=== PATIENT | male | born 1970 | race Caucasian/White ===

== ENCOUNTER 2019-04-28 08:24 | Outpatient (CLI) | payer OTHER ==
--- NOTE | 2019-04-28 08:56 | CT ---
CT OF ABD AND PELVIS: DATE 04/28/2019. COMPARISON: None. HISTORY: Nephrolithiasis, hematuria, inability to empty bladder. TECHNIQUE: Axial CT imaging at 5 mm intervals from lung bases through pubic symphysis without contrast. Coronal reformatted imaging obtained. FINDINGS: Lack of contrast media limits assessment of the viscera, bowel, vascular structures, and for lymphade nopathy. The imaged lung bases are unremarkable. No free intraperitoneal air or fluid is noted. The liver, gallbladder, and spleen appear grossly unremarkable. The pancreas and the adrenal glands a re grossly unremarkable as well. No evidence for obstructive uropathy on the left. There is a nonobstructing stone within the upper po le of the left kidney measuring approximately 4-5 mm. An additional punctate stone is noted in the upper pole of the left kidney. There is no significant hydronephrosis or hydroureter on the right. No intrarenal calculus is seen on the right. Despite the lack of evidence of obstructive uropathy, there does appear to be a stone within the distal right ureter, best seen on axial image 70 and coronal image 99 measuring approximat kira 8 mm in craniocaudal dimension. Limited assessment of the bowel demonstrates no evidence for inflammatory change or obstruction. Review of the osseous structures demonstrates no worrisome lytic or blastic bone lesions. IMPRESSION: 1. 8 mm stone within the distal right ureter. 2. Intrarenal calculi on the left. Transcribed Date/Time: 04/28/2019 9:17 AM
== END 2019-04-28 08:25 | disposition home or self-care (01) ==
LOC: SCSCT 08:24
PROVIDERS: ATTEND Family Medicine
DX: N20.2 Calculus of kidney with calculus of ureter (principal)
CPT/HCPCS: 74176

== ENCOUNTER 2019-08-28 09:01 | Inpatient (IN) | payer OTHER ==
[2019-08-28] MEDS ORDERED: Morphine 4 MG/ML VIAL ONE ×2 (09:50→11:02)
[2019-08-28 10:07] LABS: #Basophils 0.2 thou/uL (0.0-0.2); #Eosinphils 0.1 thou/uL (0.0-0.7); #Lymphocytes 0.6 thou/uL (1.20-3.40); #Monocytes 0.8 thou/uL (0.11-0.59); #Neutrophils 8.8 thou/uL (1.40-6.50); %Eosinophils 0.7 % (0.0-10.0); %Monocytes 7.3 % (0.0-10.0); Mean Corpuscular HGB CONC 35.5 g/dL (32.0-36.0); Mean Corpuscular Hemoglobin 31.2 pg (27.0-31.0); Platelet Count 220 thou/uL (130-400); RBC Distribution Width 10.7 % (11.5-14.5); Red Blood Cell (RBC) Count 4.47 mill/uL (4.70-6.10); White Blood Cell (WBC) Count 10.4 thou/uL (4.8-10.8)
[2019-08-28 10:09] LABS: ALT (SGPT) 28 U/L (8-55); AST (SGOT) 17 U/L (5-34); Albumin 3.8 g/dL (3.5-5.0); Alkaline Phosphatase 76 U/L (40-110); Anion Gap 17 mmol/L (10-20); BUN (Urea Nitrogen) 12 mg/dL (8.9-20.6); Calc. Creatinine Clearance 0 mL/min (70-130); Calcium 9.4 mg/dL (7.8-10.44); Carbon Dioxide 24 mmol/L (22-29); Chloride 104 mmol/L (98-107); Estimated GFR-MDRD 69; Globulin 3.3 g/dL (2.4-3.5); Glucose 129 mg/dL (70-105); Lipase 17 U/L (8-78); Potassium 3.8 mmol/L (3.5-5.1); Protein, Total 7.1 g/dL (6.0-8.3); Sodium 141 mmol/L (136-145)
[2019-08-28] MEDS ORDERED: Ketorolac Tromethamine 30 MG/ML VIAL ONE (11:16)
[2019-08-28] MEDS ORDERED: metroNIDAZOLE 500 MG/100 ML BAG ONE (11:16)
--- NOTE | 2019-08-28 11:59 | CT ---
CT ABDOMEN AND PELVIS WITHOUT IV CONTRAST: Oral contrast was not given. INDICATION: Abdominal pain. Comparison made to CT abdomen and pelvis dated 04/28/19. That exam revealed an obstructing calculus i n the distal right ureter. There is a nonobstructing 5 mm calculus in the upper collecting structures of the left kidney. FINDINGS: Lung bases clear. The liver, spleen, and pancreas are unremarkable. Stomach and duodenum unremarkable. Adrenal glands n ormal. Review of the urinary tract today reveals minimal fullness of the left collecting structures. There i s now a 5 mm calculus in the distal left ureter which would correspond to the calculus seen in the up per collecting structures on the left on the previous study. This calculus is producing only mild hyd ronephrosis on the left. Small bowel loops are normal caliber. There is an inflammatory process seen in the lower abdomen midline which appears to involve the upper sigmoid colon and a loop of adjacent small bowel. There is mural thickening involving this portion o f the sigmoid colon and the adjacent small bowel. There are numerous foci of extraluminal gas at this location. Extraluminal gas is also seen in the upper abdomen with gas pockets seen along the liver, stomach, and under both hemidiaphragms. No significant free fluid identified. IMPRESSION: 1. Diffuse inflammatory process with mesenteric haziness and stranding in the lower abdomen midline involving a loop of upper sigmoid colon and adjacent loop of small bowel. There is an associated brian l perforation with moderate extraluminal gas at this location and tiny gas pockets scattered througho ut the abdomen and under both hemidiaphragms as described above. No significant free fluid. There is no focal abscess collection. Etiology is undetermined, but could represent diverticulitis from the si gmoid colon; however, I cannot exclude primary etiology from the small bowel. 2. There is a 5 mm obstructing calculus in the distal left ureter producing only mild left hydroneph rosis. Findings relayed to Dr. Braga at time of dictation. CODE CR. POS: [facility]
[2019-08-28] MEDS ORDERED: Fentanyl 100 MCG/2 ML VIAL ONE (12:38)
[2019-08-28] MEDS ORDERED: Sodium Chloride 0.9% 100 ML ONE (12:41)
[2019-08-28] MEDS ORDERED: Piperacillin/Tazobactam 3.375 GM VIAL ONE (12:41)
[2019-08-28] MEDS ORDERED: Morphine 2 MG/ML SYRINGE SLOW IVP PRN (12:52)
[2019-08-28] MEDS ORDERED: hydrALAZINE 20 MG/ML VIAL SLOW IVP PRN (12:52)
[2019-08-28] MEDS ORDERED: Acetaminophen 1,000 MG in Premix Bag 1 BAG IVPB SCH (13:00)
[2019-08-28] MEDS ORDERED: Ketorolac Tromethamine 30 MG/ML VIAL IVP SCH (13:00)
--- NOTE | 2019-08-28 13:44 | HP ---
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 Today is ; on Sunday, he experienced some diarrhea, bloating, belching, night sweats without fever. On Sunday and Sunday, he continued to work and felt some bloating, but today he had exquisite pain, presented to the [facility] Emergency Room. There, he was noted to have a white count of 10 and hemoglobin of 14. Abdominal tenderness localized to his lower abdomen, had a CAT scan of the abdomen and pelvis performed, revealing an inflammatory process, lower abdomen, midline involving the upper sigmoid colon, loop adjacent small bowel. There is mural thickening involving portion of the sigmoid colon adjacent small bowel. There are numerous foci of extraluminal gas at this location. There are some small pockets of extraluminal gas along the upper abdomen and both hemidiaphragms were very small. On exam, the patient has tenderness in his lower abdomen, not his upper abdomen. The patient has a 5-mm obstructing calculus in distal left ureter, producing a mild left hydronephrosis. ALLERGIES: NONE. SOCIAL HISTORY: Tobacco, none. He does dip alcohol occasionally, although not in the past 5 days. The patient has a fiancee. He is single. PAST SURGICAL HISTORY: Colonoscopy at 28 and tubular adenoma resected. PAST MEDICAL HISTORY: Noncontributory. PHYSICAL EXAMINATION: GENERAL: He is in no distress. VITAL SIGNS: Blood pressure 120/64, pulse 90, respirations 18, and temperature 100.4 degrees. HEENT: Unremarkable. LUNGS: Clear to auscultation. CARDIAC: Regular rate and rhythm without murmur or gallop. ABDOMEN: Slightly distended. Tenderness in his lower, midline, suprapubic, and infraumbilical area with guarding. Otherwise, his upper abdomen is soft and nontender. EXTREMITIES: Unremarkable. ASSESSMENT AND PLAN: 1. Diverticulitis. He seems to be fairly well localized despite the small pockets of extraluminal gas seen in the upper abdomen. He is not tender there. We will treat this nonoperatively with intravenous antibiotics and bowel rest and follow him clinically. I have explained treatment of diverticulitis to him and told him that he may need an operation in next 1 to 2 days if he does not improve. He understands these issues and is agreeable to nonoperative treatment regimen effort. He understands he may need a repeat CAT scan, future drainage of an abscess, or other procedures indicated depending on his clinical course. 2. Left ureterolithiasis. We will consult Urology. His renal function is normal. Job ID: [id number]
--- NOTE | 2019-08-28 16:41 | PRG ---
DATE OF SERVICE: 08/28/2019 SUBJECTIVE: Jose Hernandez is doing well this afternoon. I checked him and his exam is not changed. OBJECTIVE: VITAL SIGNS: Temperature 99.2 degrees, pulse 68, and blood pressure 113/69. LUNGS: Clear to auscultation. ABDOMEN: Soft. Bowel sounds present. Tenderness in his lower abdomen. Soft in his upper abdomen. He is obese, protuberant. ASSESSMENT AND PLAN: Diverticulitis with small amount of free air. Continue these antibiotics and attempts at nonoperative management. Job ID: [id number]
[2019-08-28] MEDS: D5 1/2 NS w/20 mEq KCL 1,000 ML IV SCH ×2 (17:14→21:07)
[2019-08-28] MEDS: Piperacillin/Tazobactam 4.5 GM in Sodium Chloride 0.9% 100 ML IVPB SCH (17:17)
[2019-08-28 18:38] VITALS: BMI 32.5
[2019-08-28] MEDS: Morphine 4 MG/ML VIAL SLOW IVP PRN (19:03)
[2019-08-28] MEDS: Acetaminophen 1,000 MG in Premix Bag 1 BAG IVPB PRN (19:12)
[2019-08-28] MEDS: Enoxaparin Sodium 40 MG/0.4 ML SYRINGE SC SCH (21:08)
[2019-08-29] MEDS: Piperacillin/Tazobactam 4.5 GM in Sodium Chloride 0.9% 100 ML IVPB SCH ×5 (00:04→23:45)
[2019-08-29] MEDS: Morphine 4 MG/ML VIAL SLOW IVP PRN ×2 (00:11→08:08)
[2019-08-29 00:33] LABS: Bilirubin Negative (Negative); Blood, Urine Negative (Negative); Clarity Clear (Clear); Glucose, Urine (Dipstick) Normal (Negative); Leukocyte Negative Leu/uL (Negative); Nitrite Negative (Negative); Protein, Urine (Dipstick) 50 mg/dL (Neg-Trace); Urobilinogen 6 mg/dL (Less than 2)
[2019-08-29 00:35] LABS: Urine Culture Reflex No No
[2019-08-29] MEDS: Acetaminophen 1,000 MG in Premix Bag 1 BAG IVPB PRN (02:22)
[2019-08-29 05:46] LABS: #Eosinphils 0.2 thou/uL (0.0-0.7); #Lymphocytes 0.9 thou/uL (1.20-3.40); #Monocytes 0.8 thou/uL (0.11-0.59); #Neutrophils 7.6 thou/uL (1.40-6.50); %Basophils 0.1 % (0.0-1.0); %Eosinophils 1.8 % (0.0-10.0); %Lymphocytes 9.2 % (21.0-51.0); %Neutrophils 80.9 % (42.0-75.0); Hemoglobin 12.2 g/dL (14.0-18.0); Mean Corpuscular HGB CONC 35.2 g/dL (32.0-36.0); Mean Corpuscular Hemoglobin 32.1 pg (27.0-31.0); Mean Corpuscular Volume 91.4 fL (78.0-98.0); Mean Platelet Volume 7.1 fL (7.4-10.4); Platelet Count 235 thou/uL (130-400); RBC Distribution Width 11.1 % (11.5-14.5); Red Blood Cell (RBC) Count 3.81 mill/uL (4.70-6.10); White Blood Cell (WBC) Count 9.4 thou/uL (4.8-10.8)
[2019-08-29 05:56] LABS: ALT (SGPT) 27 U/L (8-55); AST (SGOT) 14 U/L (5-34); Albumin 3.3 g/dL (3.5-5.0); Alkaline Phosphatase 74 U/L (40-110); Anion Gap 11 mmol/L (10-20); BUN (Urea Nitrogen) 12 mg/dL (8.9-20.6); Calc. Creatinine Clearance 139 mL/min (70-130); Calcium 8.6 mg/dL (7.8-10.44); Carbon Dioxide 23 mmol/L (22-29); Chloride 105 mmol/L (98-107); Estimated GFR-MDRD 88; Glucose 148 mg/dL (70-105); Potassium 3.5 mmol/L (3.5-5.1); Protein, Total 6.3 g/dL (6.0-8.3); Sodium 135 mmol/L (136-145)
[2019-08-29] MEDS: D5 1/2 NS w/20 mEq KCL 1,000 ML IV SCH ×3 (06:11→23:45)
[2019-08-29] MEDS ORDERED: FLU VACC QS2019-20(6MOS UP)/PF 60 MCG/0.5 ML SYRINGE IM ONE (09:00)
[2019-08-29] MEDS: Pantoprazole 40 MG VIAL IVP SCH (10:13)
--- NOTE | 2019-08-29 13:21 | PRG ---
DATE OF SERVICE: 08/29/2019 SUBJECTIVE: Mr. Hernandez is doing better today. He is having less pain. He, however, did have a low-grade fevers to 100.6 and by the time of this dictation, 101.1. OBJECTIVE: LUNGS: Clear to auscultation. CARDIAC: Regular rate and rhythm without murmur or gallop. ABDOMEN: Soft, less tender. He has focal tenderness in suprapubic and left lower quadrant with guarding. Upper abdomen is soft and nontender. He does have bowel sounds. LABORATORY DATA: This morning, his white count is 9.4 and hemoglobin 12. Basic metabolic profile is normal. Urinalysis negative for blood. ASSESSMENT AND PLAN: 1. Diverticulitis, severe. He did have punctate areas of free air through his abdominal cavity and subdiaphragmatic, but these were very small and he is not tender. He is hemodynamically stable. We recommend continue treating him with bowel rest, sips and chips only at this time and high-dose antibiotics, 4.5 g Zosyn IV q.6 hours. If he improves, he could perhaps be started on clear liquids. He did have a bowel movement today. He is feeling much better. 2. Urolithiasis, left ureteral stone. Dr. Mauricio has seen him and planning cystoscopy, retrogrades today to eliminate this as a source of his fever and pain. Most likely, this pain is a combination of the two, but probably mostly from his diverticulitis and it would not be unusual for him to have low-grade fevers. Dr. Fisher is covering the weekend. Job ID: [id number]
[2019-08-29] MEDS ORDERED: Fentanyl 100 MCG/2 ML VIAL ONE (13:32)
[2019-08-29] MEDS ORDERED: Midazolam HCl 2 mg/2 ml Vial ONE (13:32)
[2019-08-29] MEDS ORDERED: Iothalamate Meglumine 60% 50 ML VIAL FS ONE (13:59)
[2019-08-29] MEDS ORDERED: Promethazine HCl 25 MG/ML VIAL IM PRN (15:00)
[2019-08-29] MEDS ORDERED: Promethazine HCl 25 MG/ML VIAL SLOW IVP PRN (15:00)
[2019-08-29] MEDS ORDERED: Ondansetron HCl/PF 4 MG/2 ML Vial IVP PRN (15:00)
[2019-08-29] MEDS ORDERED: D5 1/2 NS w/20 mEq KCL 1,000 ML ONE (15:23)
--- NOTE | 2019-08-29 15:25 | CON ---
DATE OF CONSULTATION: 08/29/2019 REASON FOR CONSULTATION: Kidney stone. CHIEF COMPLAINT: Abdominal pain. HISTORY OF PRESENT ILLNESS: This is a 49-year-old male with a history throughout this week, beginning on Sunday of abdominal pain, bloating, night sweats, and diarrhea. He had worsening pain and bloating and presented to the emergency room on . His white count was [address] diagnosed him with diverticulitis with extraluminal gas as well as a distal left ureteral stone with mild hydronephrosis. Overnight, he tells me that he feels mildly improved as far as the discomfort, although he continues to report abdominal pain, nausea, dysuria, and suprapubic pain. He feels that he has a weak urinary stream. He is having subjective fevers this afternoon, and his temperature has risen to over 102 here recently. He does have a history of recurrent kidney stones and told that he has passed 4 or 5 this year. He has never required surgery for kidney stone removal. ALLERGIES: NONE. PAST MEDICAL HISTORY: Recurrent kidney stones. PAST SURGICAL HISTORY: Colonoscopy with tubular adenoma resection. SOCIAL HISTORY: Nonsmoker. He does dip tobacco. Occasional alcohol use. Engaged. Employed. HOME MEDICATIONS: Reviewed. No urologic medications. FAMILY HISTORY: Reviewed, noncontributory. PHYSICAL EXAMINATION: VITAL SIGNS: T-max over 102, otherwise vitals are stable. GENERAL: No acute distress. Conversant. HEENT: Extraocular movements are intact. Sclarea are nonicteric. Head, normocephalic and atraumatic. LUNGS: Unlabored and breathing, symmetric chest expansion. HEART: Regular rate and rhythm. ABDOMEN: Distended. Mild tenderness throughout. Much more tender over the left lower quadrant. No flank tenderness. : Normal phallus. Testicles present in the scrotum. Moderate suprapubic tenderness. EXTREMITIES: Without clubbing, cyanosis, or edema. NEUROLOGIC: Alert and oriented x3. PSYCHIATRIC: Normal mood and affect. LABORATORY DATA: White count this morning is 9.4, down from 10.4 yesterday. Creatinine is stable at 0.92 today. Urinalysis this morning shows small amount of protein with negative nitrites or leukocytes. CT scan was personally reviewed by me, both the images and the Radiology report; as far as the kidney stone, he does have what appears to be a 5 to 6 mm stone in the distal left ureter with proximal hydroureter. I do not appreciate any perinephric stranding. There are no other intrarenal stones. ASSESSMENT AND PLAN: Obstructing distal left ureteral stone with fevers. The patient and I discussed this issue at length, and I also coordinated care with Dr. Munoz, his attending physician. We decided that we would proceed to the operating room today for ureteral stent placement to help clarify his clinical picture. He does understand that this will require a second procedure to remove the stone in the future. We discussed the procedure in detail including the expected postoperative course and the risks including bleeding, infection, pain, inability to bypass the stone and place the stent requiring possible percutaneous nephrostomy tube, ureteral injury. The patient understands these risks and wishes to proceed with the procedure. Job ID: [id number]
--- NOTE | 2019-08-29 16:39 | RAD ---
Retrograde pyelogram one view: DATE: 08/29/2019 HISTORY: 49-year-old male with obstructive left distal ureteral calculus. FINDINGS: Single image demonstrates a left ureteral stent. There is a small amount of contrast material within a decompressed urinary bladder and within a portion of the left renal collecting system. There is also small amount of contrast along the distal portion of left ureter. No high-grade hydronephrosis o f the partially visualized left renal collecting system. IMPRESSION: Left ureteral stent.
--- NOTE | 2019-08-29 20:38 | OP ---
DATE OF PROCEDURE: 08/29/2019 PREOPERATIVE DIAGNOSIS: Obstructing left ureteral stone. POSTOPERATIVE DIAGNOSIS: Obstructing left ureteral stone. PROCEDURES PERFORMED: Cystoscopy with left retrograde pyelogram, left 4.8 x 6 double-J ureteral stent. ANESTHESIA: General. COMPLICATIONS: None. SPECIMEN: Urine for culture. BLOOD LOSS: 5 mL. DESCRIPTION OF PROCEDURE: After informed consent, the patient was taken to the operating room, transferred to the table on his own power. Anesthesia was established. Timeout was performed showing the correct patient, site, and procedure. We make sure that he had received antibiotics on the floor as scheduled - Zosyn at 1 p.m. He was prepped and draped in the lithotomy position. The rigid cystoscope was advanced through the urethra into the bladder, revealed normal course and caliber of the urethra and a nonobstructing prostate. The bladder was systematically examined, noting no mucosal abnormalities. The left ureteral orifice was cannulated with a Pollack catheter, and a retrograde pyelogram was generally performed showing filling defect in the distal left ureter with hydroureter beyond; however, the proximal ureter and renal pelvis were not dilated. I then passed a wire under fluoroscopic guidance up into the upper pole of the kidney by passing the stone. The Pollack catheter was then removed and a 4.8 x 6 double-J ureteral stent placed with a curl in the upper pole and a curl in the bladder under fluoroscopic imaging and direct visualization respectively. There was a small amount of purulent debris, which was sent for urine culture. The bladder was then drained, and the scope was withdrawn. The patient was brought down from lithotomy position, awoken from anesthesia, transferred back to his hospital bed and taken to PACU in stable condition. Job ID: [id number]
[2019-08-29] MEDS: Enoxaparin Sodium 40 MG/0.4 ML SYRINGE SC SCH (20:51)
[2019-08-30] MEDS: Piperacillin/Tazobactam 4.5 GM in Sodium Chloride 0.9% 100 ML IVPB SCH ×4 (05:12→23:55)
[2019-08-30] MEDS: D5 1/2 NS w/20 mEq KCL 1,000 ML IV SCH ×3 (05:42→21:50)
[2019-08-30] MEDS: Pantoprazole 40 MG VIAL IVP SCH (09:25)
[2019-08-30] MEDS ORDERED: Acetaminophen 1,000 MG in Premix Bag 1 BAG IVPB PRN (09:44)
--- NOTE | 2019-08-30 09:55 | PRG ---
DATE OF SERVICE: 08/30/2019 SUBJECTIVE: Mr. Hernandez feels better. His pain on the left flank is much improved since stent placement. No fevers. He notes mild bloating, but no nausea or vomiting. OBJECTIVE: VITAL SIGNS: He is afebrile and his vital signs are stable. ABDOMEN: Soft. He has some minimal lower abdominal guarding without peritoneal signs. LABORATORY DATA: His white blood cell count is normal. ASSESSMENT: 1. Complicated diverticulitis. 2. Left ureteral stone, status post stent. PLAN: He certainly has a complex diverticulitis. I am not sure he is going to get through this hospitalization without surgery. However, his pain is actually improved. His belly is fairly soft and his white blood cell count is normal, so we will allow clear liquid diet today. Recheck his labs in the morning. Continue Stephany. Job ID: [id number]
[2019-08-30] MEDS: Ketorolac Tromethamine 30 MG/ML VIAL IVP PRN (11:29)
[2019-08-30] MEDS: Enoxaparin Sodium 40 MG/0.4 ML SYRINGE SC SCH (20:35)
[2019-08-30] MEDS ORDERED: Zolpidem Tartrate 5 MG TAB PO PRN (20:46)
[2019-08-31] MEDS: Piperacillin/Tazobactam 4.5 GM in Sodium Chloride 0.9% 100 ML IVPB SCH ×4 (05:21→23:01)
[2019-08-31] MEDS: D5 1/2 NS w/20 mEq KCL 1,000 ML IV SCH ×2 (05:25→20:43)
[2019-08-31 06:51] LABS: #Eosinphils 0.2 thou/uL (0.0-0.7); #Lymphocytes 1.9 thou/uL (1.20-3.40); #Neutrophils 8.8 thou/uL (1.40-6.50); %Basophils 0.1 % (0.0-1.0); %Eosinophils 1.3 % (0.0-10.0); %Lymphocytes 16.1 % (21.0-51.0); %Monocytes 8.5 % (0.0-10.0); %Neutrophils 73.9 % (42.0-75.0); Hemoglobin 12.1 g/dL (14.0-18.0); Mean Corpuscular HGB CONC 33.9 g/dL (32.0-36.0); Mean Corpuscular Hemoglobin 31.6 pg (27.0-31.0); Mean Platelet Volume 6.7 fL (7.4-10.4); Platelet Count 294 thou/uL (130-400); RBC Distribution Width 11.3 % (11.5-14.5); Red Blood Cell (RBC) Count 3.83 mill/uL (4.70-6.10); White Blood Cell (WBC) Count 11.9 thou/uL (4.8-10.8)
[2019-08-31 07:07] LABS: Anion Gap 11 mmol/L (10-20); BUN (Urea Nitrogen) 13 mg/dL (8.9-20.6); Calc. Creatinine Clearance 154 mL/min (70-130); Calcium 8.6 mg/dL (7.8-10.44); Carbon Dioxide 24 mmol/L (22-29); Chloride 108 mmol/L (98-107); Estimated GFR-MDRD Greater than 90; Glucose 118 mg/dL (70-105); Potassium 3.8 mmol/L (3.5-5.1); Sodium 139 mmol/L (136-145)
[2019-08-31] MEDS ORDERED: D5 1/2 NS w/20 mEq KCL 1,000 ML IV SCH (08:48)
--- NOTE | 2019-08-31 09:03 | PRG ---
DATE OF SERVICE: 08/31/2019 SUBJECTIVE: Mr. Hernandez has no complaints. He has had multiple bowel movements. OBJECTIVE: VITAL SIGNS: He is afebrile. Vital signs are stable. ABDOMEN: His abdomen is soft. He really is nontender on exam. LABORATORY DATA: White blood cell count is 11, hemoglobin is 12, platelet count is 294. His creatinine is 0.83. ASSESSMENT: Complex diverticulitis, but improved clinically. His white blood cell count is 11 today, so slightly above normal, but not concerning. PLAN: Advance to full liquid diet. I suspect he may be ready to go home tomorrow on oral antibiotics. Job ID: [id number]
[2019-08-31] MEDS: Pantoprazole 40 MG VIAL IVP SCH (09:17)
[2019-08-31] MEDS: Ketorolac Tromethamine 30 MG/ML VIAL IVP PRN (15:07)
[2019-08-31] MEDS ORDERED: hydrALAZINE 20 MG/ML VIAL SLOW IVP PRN (18:12)
[2019-08-31] MEDS ORDERED: Ketorolac Tromethamine 30 MG/ML VIAL IVP PRN (18:12)
[2019-08-31] MEDS ORDERED: Morphine 2 MG/ML SYRINGE SLOW IVP PRN (18:12)
[2019-08-31] MEDS ORDERED: Morphine 4 MG/ML VIAL SLOW IVP PRN (18:13)
[2019-08-31] MEDS: Zolpidem Tartrate 5 MG TAB PO PRN (20:43)
[2019-08-31] MEDS: Enoxaparin Sodium 40 MG/0.4 ML SYRINGE SC SCH (20:43)
[2019-09-01] MEDS: Piperacillin/Tazobactam 4.5 GM in Sodium Chloride 0.9% 100 ML IVPB SCH ×4 (06:25→23:25)
[2019-09-01] MEDS: Pantoprazole 40 MG VIAL IVP SCH (08:16)
[2019-09-01] MEDS: D5 1/2 NS w/20 mEq KCL 1,000 ML IV SCH (16:37)
--- NOTE | 2019-09-01 18:15 | PRG ---
DATE OF SERVICE: 09/01/2019 SUBJECTIVE: Mr. Hernandez is doing well over the weekend. Dr. Fisher has advanced him to liquids. He is having minimal pain. He complains of some perianal pain after bowel movements, but no abdominal pain. OBJECTIVE: VITAL SIGNS: Temperature 98.5 degrees, pulse 64, and blood pressure 137/65. LUNGS: Clear to auscultation. CARDIAC: Regular rate and rhythm without murmur or gallop. ABDOMEN: Soft. Minimal tenderness, left lower quadrant. Guarding and rebound have resolved. LABORATORY DATA: No laboratories today. ASSESSMENT AND PLAN: Doing well. We will plan discharge home most likely tomorrow with oral antibiotics, 875 Augmentin b.i.d. and follow up in the office in 2 weeks. He should be on a low-fiber diet for 2 to 3 weeks, advance high-fiber after that. Urolithiasis, Dr. Mauricio will guide his treatment for this. If he continues to do well tomorrow, expect discharge home. Job ID: [id number]
[2019-09-01] MEDS: Enoxaparin Sodium 40 MG/0.4 ML SYRINGE SC SCH (22:29)
[2019-09-01] MEDS: Zolpidem Tartrate 5 MG TAB PO PRN (22:30)
[2019-09-02] MEDS: D5 1/2 NS w/20 mEq KCL 1,000 ML IV SCH
[2019-09-02] MEDS: Piperacillin/Tazobactam 4.5 GM in Sodium Chloride 0.9% 100 ML IVPB SCH (05:24)
[2019-09-02] MEDS ORDERED: Amoxicillin/Potassium Clav 875 MG TAB PO SCH (09:00)
[2019-09-02] MEDS: Pantoprazole 40 MG VIAL IVP SCH (09:18)
--- NOTE | 2019-09-02 09:53 | PRG ---
DATE OF SERVICE: 09/02/2019 CHIEF COMPLAINT: Abdominal pain. SUBJECTIVE: No acute events overnight. The patient denies fevers, nausea, vomiting, dysuria, hematuria. He does endorse urgency and frequency as well as occasional hematuria. Overall, he has been improving clinically through the weekend and is ready for discharge home today. OBJECTIVE: VITAL SIGNS: Afebrile, vitals stable overnight. Good urine output. No acute distress. Conversant. ABDOMEN: Soft, mild tenderness, mild distention. SKIN: Warm and dry. NEUROLOGIC: Alert and oriented x3. LABORATORY DATA: Most recent lab work is from . White count of 11. Creatinine 0.8. ASSESSMENT AND PLAN: Postop day 4, cystoscopy with left ureteral stent placement. Clinically, the patient is ready for discharge home. We will follow up in 2 weeks and if he has not yet passed the stone, we will look forward with ureteroscopy. We discussed precautions for when he needs to contact me if he is having issues. Job ID: [id number]
--- NOTE | 2019-09-02 09:55 | PRG ---
DATE OF SERVICE: 09/02/2019 SUBJECTIVE: Mr. Hernandez is doing well today. He is tolerating his diet. He is having minimal pain. He is having some discomfort in his lower back, radiating towards his left scrotum. He believes that he is trying to pass the stone. OBJECTIVE: VITAL SIGNS: Temperature 98.4 degrees, heart rate 66, and blood pressure 143/94. LUNGS: Clear to auscultation. CARDIAC: Regular rate and rhythm without murmur or gallop. ABDOMEN: Soft. No tenderness except for focal tenderness in the left lower quadrant, suprapubic just off the midline. Minimal tenderness without rebound or guarding. ASSESSMENT AND PLAN: Resolving diverticulitis. I have talked to him about a low-fiber diet for 2 weeks, transition to high-fiber after that. I have discussed with him avoiding salads, fruits, and vegetables and fiber additions for 2 weeks. He should follow up in my office in 2 to 3 weeks. He should follow up with Dr. Mauricio as an outpatient. Dr. Mauricio will see him this morning regarding his left ureteral stone and stent. He will advance his diet to high fiber after 2 to 3 weeks. He will call me sooner if there are any problems. Otherwise, I will see him in 2 weeks, and plan is discharge home today on Augmentin for 2 weeks. Job ID: [id number]
--- NOTE | 2019-09-02 10:43 | DIS ---
DATE OF ADMISSION: 08/28/2019 DATE OF DISCHARGE: 09/02/2019 DISCHARGE DIAGNOSES: 1. Severe diverticulitis with pneumoperitoneum. 2. Left ureteral stone. PROCEDURES IN THIS HOSPITALIZATION: CT scan of abdomen and pelvis. Treating him nonoperatively, intravenous antibiotics, and bowel rest. DISCHARGE INSTRUCTIONS: Plan to discharge home on low-fiber diet for 2 weeks. Michael saw him prior to discharge. Transition to high-fiber diet after 2 to 3 weeks. Two weeks of Augmentin 875 p.o. b.i.d. Follow up in my office in 2 to 3 weeks. Follow up with Dr. Mauricio regarding the left ureteral stone. HISTORY: A 49-year-old male patient with severe abdominal pain, presented to the emergency room, CAT scan revealing punctate areas of pneumoperitoneum, subdiaphragmatic and throughout the abdominal cavity, although he had focal tenderness in left lower quadrant. He was transferred to preoperative holding, but after I examined him his tenderness seemed to be limited, decision was to treat him nonoperatively, which he improved daily with intravenous antibiotics. He has been discharged home at this time with 2 weeks of Augmentin, low-fiber diet for 2 to 3 weeks, transition to high-fiber after that. Michael saw him prior to discharge. On CAT scan, he was noted to have a left ureteral stone. He had a prior history of urolithiasis, not having seen a urologist prior. Dr. Mauricio saw him in the hospital, performed a cystoscopy and a stent placement, will be following him as an outpatient regarding the stone and lithotripsy if necessary in the future. Job ID: [id number]
[2019-09-02 12:19] VITALS: BP 127/82; TEMP 98.7
== END 2019-09-02 13:40 | disposition home or self-care (01) | DRG 660 ==
LOC: SCSER 09:01 → SDC 12:04 → SURG B 12:52 → SJJU 08-29 12:47 → SURG B 08-29 12:49 → UNDODISIN 08-31 16:50
PROVIDERS: ADMIT Specialist; ATTEND Specialist
PROC: 0T778DZ Dilation of Left Ureter with Intraluminal Device, Via Natural or Artificial Opening Endoscopic (ICD-10-PCS; principal; 2019-08-29)
PROC: BT1F1ZZ Fluoroscopy of Left Kidney, Ureter and Bladder using Low Osmolar Contrast (ICD-10-PCS; 2019-08-29)
DX: N13.2 Hydronephrosis with renal and ureteral calculous obstruction (principal); K57.80 Diverticulitis of intestine, part unspecified, with perforation and abscess without bleeding; Z98.890 Other specified postprocedural states
CPT/HCPCS: 36415; 74176; 74420; 80048; 80053; 81001; 83605; 83690; 85025; 87086; 90471; 90686; 93005; C9113; G0008; J0131; J1650; J1885; J2250; J2270; J2543; J3010; J3490

== ENCOUNTER 2019-09-16 12:02 | Outpatient (CLI) | payer OTHER ==
--- NOTE | 2019-09-16 12:37 | RAD ---
XR Abdomen 1 View/KUB History: N 20.0. History of kidney stones. Comparison: CT abdomen and pelvis August 28, 2019 Findings: Satisfactory appearance left double-J ureteral stent. No abnormal calculi are seen ejecting over the expected location left ureter. Impression: No abnormal calculi projecting over the expected location left ureter.
== END 2019-09-16 12:03 | disposition home or self-care (01) ==
LOC: SCSRAD 12:02
PROVIDERS: ATTEND Urology
DX: N20.0 Calculus of kidney (principal)
CPT/HCPCS: 74018

== ENCOUNTER 2019-09-24 07:34 | Outpatient (CLI) | payer OTHER ==
[2019-09-24 10:57] LABS: Hemoglobin 14.6 g/dL (14.0-18.0); Mean Corpuscular HGB CONC 33.7 g/dL (32.0-36.0); Mean Corpuscular Volume 88.9 fL (78.0-98.0); Mean Platelet Volume 8.1 fL (7.4-10.4); Platelet Count 192 thou/uL (130-400); RBC Distribution Width 11.9 % (11.5-14.5); Red Blood Cell (RBC) Count 4.87 mill/uL (4.70-6.10); White Blood Cell (WBC) Count 6.1 thou/uL (4.8-10.8)
[2019-09-24 11:16] LABS: Bilirubin Negative (Negative); Blood, Urine 3+ (Negative); Clarity Clear (Clear); Glucose, Urine (Dipstick) Normal (Negative); Leukocyte 500 Leu/uL (Negative); Nitrite Negative (Negative); Protein, Urine (Dipstick) 30 mg/dL (Neg-Trace); RBC/HPF Greater than 50 HPF (0-3); Squamous Epithelial None Seen HPF (0-3); Urobilinogen Normal mg/dL (Less than 2)
[2019-09-24 11:37] LABS: Bacteria/HPF None Seen HPF (None Seen)
[2019-09-24 11:40] LABS: Anion Gap 13 mmol/L (10-20); BUN (Urea Nitrogen) 11 mg/dL (8.9-20.6); Calc. Creatinine Clearance 0 mL/min (70-130); Calcium 9.7 mg/dL (7.8-10.44); Carbon Dioxide 25 mmol/L (22-29); Chloride 103 mmol/L (98-107); Estimated GFR-MDRD 90; Glucose 95 mg/dL (70-105); Potassium 4.2 mmol/L (3.5-5.1); Sodium 137 mmol/L (136-145)
--- NOTE | 2019-09-25 07:05 | EKG ---
Test Reason : Blood Pressure : / mmHG Vent. Rate : 054 BPM Atrial Rate : 054 BPM P-R Int : 180 ms QRS Dur : 090 ms QT Int : 406 ms P-R-T Axes : 033 025 015 degrees QTc Int : 385 ms 3 Sinus bradycardia Cannot rule out Anterior infarct , age undetermined Early repolarization Abnormal ECG When compared with ECG of 28-AUG-2019 11:47, (Unconfirmed) Previous ECG has undetermined rhythm, needs review Confirmed by DR. Norm LAYNE ([id number]) on 09/25/2019 7:05:00 AM Referred By: LIS Confirmed By:DR. Norm LAYNE
== END 2019-09-24 07:35 | disposition home or self-care (01) ==
LOC: LABBT 07:34
PROVIDERS: ATTEND Urology
DX: Z01.818 Encounter for other preprocedural examination (principal); N20.1 Calculus of ureter
CPT/HCPCS: 80048; 81001; 85027; 87086; 93005; 93010

== ENCOUNTER → 2019-09-30 | Day surgery (SDC) | payer OTHER ==
[2019-09-24 08:47] VITALS: BMI 31.0
[~2019-09-30] MED LIST: Fentanyl 100 MCG/2 ML VIAL ONE; Glycopyrrolate 0.2 MG/ML 5 ML SYRINGE ONE; Iothalamate Meglumine 60% 50 ML VIAL FS ONE; Ketorolac Tromethamine 30 MG/ML VIAL ONE; Levofloxacin 500 mg/D5W 100 ml Premix Bag ONE; Lidocaine 1% PF 5 ML VIAL ONE; Oxybutynin 5 MG TAB ONE; PROPOFOL 200 MG/20 ML VIAL ONE; Phenazopyridine HCl 97.5 MG TABLET ONE; ePHEDrine/0.9% NaCl/PF SYRINGE 50 mg/10 ml ONE
--- NOTE | 2019-09-30 11:44 | OP ---
DATE OF PROCEDURE: 09/30/2019 PREOPERATIVE DIAGNOSIS: Left ureteral stone. POSTOPERATIVE DIAGNOSIS: Left ureteral stone. PROCEDURES PERFORMED: Left ureteroscopy with laser lithotripsy, 4.8 x 26 double-J ureteral stent placement. ANESTHESIA: General. COMPLICATIONS: None. SPECIMENS: Left ureteral stone fragments. BLOOD LOSS: 5 mL. DESCRIPTION OF PROCEDURE: After informed consent, the patient was taken to the procedure room. He transferred to the table under his own power. Anesthesia was established. A time-out was performed, showing correct patient, site, and procedure. Preoperative antibiotics were administered. He was prepped and draped in the lithotomy position. The cystoscope was advanced through the urethra into the bladder, and the left ureteral stent was grasped and brought out through the urethral meatus. A wire was placed through this and guided into the renal pelvis under fluoroscopic guidance. The rigid ureteroscope was then advanced alongside the wire into the distal ureter, where the stone was identified about 4 cm from the UVJ. A retrograde pyelogram was performed showing no hydronephrosis, hydroureter, filling defects other than the stone. The 365 laser fiber was used to fragment the stone into small pieces. The Nitinol basket was then used to retrieve these pieces, which were passed off as specimen. The scope was then passed up to the proximal ureter noting no further stone fragments or abnormalities. A completion retrograde was performed, and then the scope withdrawn. A 4.8 x 26 cm stent was passed over the wire with a curl in the kidney and curl in the bladder under fluoroscopic guidance. The bladder was drained. Strings were left on the stent for the patient to remove in three days. He was then awoken from anesthesia, transferred back to his hospital bed and taken to PACU in stable condition, where he will discharge home upon recovery. Job ID: [id number]
== END ==
LOC: SDC 06:18
PROVIDERS: ATTEND Urology
PROC: 0TF78ZZ Fragmentation in Left Ureter, Via Natural or Artificial Opening Endoscopic (ICD-10-PCS; principal; 2019-09-30)
PROC: 0T778DZ Dilation of Left Ureter with Intraluminal Device, Via Natural or Artificial Opening Endoscopic (ICD-10-PCS; principal; 2019-09-30)
DX: N20.1 Calculus of ureter (principal); I10 Essential (primary) hypertension; E78.5 Hyperlipidemia, unspecified; F17.200 Nicotine dependence, unspecified, uncomplicated; R73.03 Prediabetes; Z79.899 Other long term (current) drug therapy
CPT/HCPCS: 82365; 88300; J1885; J1956; J2001; J2704; J3010

== ENCOUNTER 2020-04-28 07:17 | Outpatient (CLI) | payer OTHER ==
--- NOTE | 2020-04-28 07:47 | ULT ---
Renal sonogram HISTORY: Left ureteral calculus. FINDINGS: Right kidney is 11.1 cm and left is 11.8 cm. Each has a normal sonographic appearance witho ut evidence of mass, stone, or hydronephrosis. Urinary bladder shows no focal abnormalities. Post void volume calculated at 66 cc. IMPRESSION : No evidence of the upper urinary tract obstruction or renal abnormalities. Small post void urinary bladder residual, 66 cc.
== END 2020-04-28 07:18 | disposition home or self-care (01) ==
LOC: BICULT 07:17
PROVIDERS: ATTEND Urology
DX: N20.0 Calculus of kidney (principal)
CPT/HCPCS: 76770

== ENCOUNTER 2021-09-26 10:50 | Emergency (ER) | payer OTHER ==
[2021-09-26 12:28] LABS: Bilirubin Negative (Negative); Blood, Urine Negative (Negative); Clarity Clear (Clear); Glucose, Urine (Dipstick) Normal (Negative); Ketone, Urine Negative (Negative); Leukocyte Negative Leu/uL (Negative); Nitrite Negative (Negative); Protein, Urine (Dipstick) Negative (Neg-Trace); Specific Gravity, Urine 1.002 (1.002-1.036); Urobilinogen Normal mg/dL (Less than 2)
[2021-09-26 13:04] LABS: #Basophils 0.1 thou/uL (0.0-0.2); #Eosinphils 0.1 thou/uL (0.0-0.7); #Lymphocytes 2.2 thou/uL (1.20-3.40); #Monocytes 0.7 thou/uL (0.11-0.59); #Neutrophils 7.5 thou/uL (1.40-6.50); %Basophils 0.6 % (0.0-1.0); %Lymphocytes 20.9 % (21.0-51.0); %Monocytes 6.3 % (0.0-10.0); %Neutrophils 71.3 % (42.0-75.0); Hemoglobin 16.2 g/dL (14.0-18.0); Mean Corpuscular HGB CONC 33.4 g/dL (32.0-36.0); Mean Corpuscular Volume 92.9 fL (78.0-98.0); Mean Platelet Volume 6.9 fL (7.4-10.4); Platelet Count 239 thou/uL (130-400); RBC Distribution Width 11.8 % (11.5-14.5); Red Blood Cell (RBC) Count 5.22 mill/uL (4.70-6.10); White Blood Cell (WBC) Count 10.6 thou/uL (4.8-10.8)
[2021-09-26 13:20] LABS: ALT (SGPT) 33 U/L (8-55); AST (SGOT) 18 U/L (5-34); Albumin 4.3 g/dL (3.5-5.0); Alkaline Phosphatase 96 U/L (40-110); Anion Gap 15 mmol/L (10-20); BUN (Urea Nitrogen) 12 mg/dL (8.9-20.6); Bilirubin, Total 0.3 mg/dL (0.2-1.2); Calc. Creatinine Clearance 0 mL/min (70-130); Calcium 9.7 mg/dL (7.8-10.44); Carbon Dioxide 22 mmol/L (22-29); Chloride 104 mmol/L (98-107); Globulin 2.9 g/dL (2.4-3.5); Glucose 113 mg/dL (70-105); Potassium 4.1 mmol/L (3.5-5.1); Protein, Total 7.2 g/dL (6.0-8.3); Sodium 137 mmol/L (136-145)
== END 2021-09-26 14:45 | disposition home or self-care (01) ==
LOC: ERS 10:50
DX: R55 Syncope and collapse (principal); F41.9 Anxiety disorder, unspecified; I10 Essential (primary) hypertension; F17.220 Nicotine dependence, chewing tobacco, uncomplicated
CPT/HCPCS: 36415; 71045; 80053; 81003; 84484; 85025; 93005